=== PATIENT | female | born 1970 | race Caucasian/White ===

== ENCOUNTER 2016-07-23 21:33 | Emergency (ER) | payer OTHER ==
[~2016-07-23] VITALS: Ht 167.6 cm; Wt 52.6 kg
[2016-07-23 21:58] LABS: HEMATOCRIT 30.7 % (36.0-46.0); MCH 32.3 PG (29.0-34.0); MCHC 32.9 G/DL (30.0-36.0); MCV 98.1 FL (83-99); MEAN PLAT.VOLUME 8.9 uM^3 (9.5-12.4); PLATELET COUNT 109 K/uL (156-360); RBC DIS.WIDTH-SD 59.4 % (39-53); RED BLOOD COUNT 3.13 M/uL (3.80-5.20); WHITE BLOOD COUNT 5.1 K/uL (4.1-10.2)
[2016-07-23 22:06] LABS: CHLORIDE 100 mEq/L (99-109); POTASSIUM 2.9 mEq/L (3.7-5.4); SODIUM 137 mEq/L (136-147)
[2016-07-23 22:08] LABS: GLUCOSE 101 mg/dL (70-99)
[2016-07-23 22:10] LABS: ANION GAP 17 MEQ/L (2-14); TOTAL BILIRUBIN 0.3 mg/dL (0.0-1.0)
[2016-07-23 22:12] LABS: ALKALINE PHOSPHATASE 124 IU/L (3-129); GFR ESTIMATE (CALCULATED) > 59 mL/min/
[2016-07-23 22:13] LABS: UREA NITROGEN (BUN) 6 mg/dL (9-23)
[2016-07-23 22:22] LABS: QUANTITATIVE HCG < 4.0 MIU/ML
[2016-07-23] MEDS ORDERED: FLAGYL500 MG PO (23:46)
[2016-07-23] MEDS ORDERED: TRAZODONE HCL50 MG PO (23:46)
[2016-07-23] MEDS ORDERED: SYNTHROID112 MCG PO (23:46)
[2016-07-24] MEDS ORDERED: BENTYL10 MG PO (00:07)
[2016-07-24 00:15] VITALS: BP 123/72
== END 2016-07-24 00:20 | disposition home or self-care (01) ==
LOC: EME 21:33
DX: A04.7 Enterocolitis due to Clostridium difficile (principal); E87.6 Hypokalemia; F17.200 Nicotine dependence, unspecified, uncomplicated
CPT/HCPCS: 80053; 81003; 84702; 85027; 99281; 99285; J2060; J2405; J3480; J7030; S0030